=== PATIENT | male | born 2000 | race Two or more races ===

== ENCOUNTER 2021-08-23 14:57 | Emergency (ER) | payer OTHER ==
[~2021-08-23] VITALS: Ht 170.2 cm; Wt 68.5 kg
[2021-08-23] MEDS ORDERED: NAPROSYN500 MG PO (16:51)
[2021-08-23] MEDS ORDERED: FLOMAX0.4 MG PO (17:15)
[2021-08-23] MEDS ORDERED: LACTULOSE20 GM/30 M PO (17:15)
[2021-08-23 17:29] VITALS: BP 128/72
== END 2021-08-23 17:31 | disposition home or self-care (01) ==
LOC: FSED 15:13
DX: R10.84 Generalized abdominal pain (principal); R11.0 Nausea; F17.210 Nicotine dependence, cigarettes, uncomplicated
CPT/HCPCS: 74176; 80048; 80076; 85025; 99284